=== PATIENT | female | born 1985 | race Hispanic/Latino ===

== ENCOUNTER 2022-07-30 08:57 | Emergency (ER) | payer BC ==
[2022-07-30] MEDS ORDERED: Ketorolac Tromethamine 30 MG/ML VIAL ONE (09:39)
[2022-07-30 09:51] LABS: #Basophils 0.1 10x3/uL (0.0-0.2); #Eosinphils 0.2 10x3/uL (0.0-0.5); #Monocytes 0.6 10x3/uL (0.0-1.1); #Neutrophils 5.2 10x3/uL (1.5-8.4); %Basophils 1.2 % (0.0-2.0); %Eosinophils 2.2 % (0.0-6.0); %Lymphocytes 27.3 % (18.0-47.0); %Monocytes 6.9 % (0.0-10.0); %Neutrophils 62.3 % (40.0-75.0); Bilirubin Neg (Negative); Blood, Urine 250 (Negative); Clarity Cloudy (Clear); Glucose, Urine (Dipstick) Normal (Negative); Hemoglobin 11.7 g/dL (12.0-15.5); Ketone, Urine Negative (Negative); Leukocyte 25 (Negative); Mean Corpuscular HGB CONC 31.4 g/dL (32.0-36.0); Mean Corpuscular Hemoglobin 23.5 pg (27.0-33.0); Mean Corpuscular Volume 74.9 fl (81.6-98.3); Mean Platelet Volume 9.6 fl (7.4-10.4); Nitrite Negative (Negative); Platelet Count 463 10x3/uL (150-450); Protein, Urine (Dipstick) 30 mg/dl (Neg-Trace); RBC Distribution Width 18.6 % (11.5-14.5); Red Blood Cell (RBC) Count 4.98 10x6/uL (3.90-5.03); Urobilinogen Normal mg/dL (Less than 2); White Blood Cell (WBC) Count 8.4 10x3/uL (3.5-10.5)
[2022-07-30 09:54] LABS: Pregnancy Test - Urine (BHCG) Negative (Negative); Pregu Control Background? CLEAR/WHITE (CLR/WHITE); Pregu Control Bar Appear? YES (CONTROL BAR)
[2022-07-30 10:01] LABS: RBC/HPF 21-50 HPF (0-3); WBC/HPF 0-3 HPF (0-3)
[2022-07-30 10:02] LABS: Bacteria/HPF 2+ HPF (None Seen)
[2022-07-30 10:03] LABS: Mucous/LPF 1+ LPF (<2+)
[2022-07-30] MEDS ORDERED: Morphine 4 MG/ML VIAL ONE (10:04)
[2022-07-30 10:08] LABS: ALT (SGPT) 14 U/L (8-55); AST (SGOT) 18 U/L (5-34); Albumin 4.3 g/dL (3.5-5.0); Alkaline Phosphatase 122 U/L (40-110); Anion Gap 12 mmol/L (10-20); BUN (Urea Nitrogen) 11 mg/dL (7.0-18.7); Bilirubin, Total 0.6 mg/dL (0.2-1.2); Calc. Creatinine Clearance 0 mL/min (70-130); Calcium 9.4 mg/dL (7.8-10.44); Carbon Dioxide 25 mmol/L (22-29); Chloride 106 mmol/L (98-107); Estimated GFR 102; Globulin 4.2 g/dL (2.4-3.5); Glucose 94 mg/dL (70-105); Potassium 4.1 mmol/L (3.5-5.1); Protein, Total 8.5 g/dL (6.0-8.3); Sodium 139 mmol/L (136-145)
[2022-07-30] MEDS ORDERED: cefTRIAXone\\ROCEPHIN 1 GM VIAL ONE (11:32)
[2022-07-30] MEDS ORDERED: Iopamidol 300 61% 100 ML VIAL FS ONE (13:23)
== END 2022-07-30 13:51 | disposition home or self-care (01) ==
LOC: CSHERS 08:57
DX: N30.01 Acute cystitis with hematuria (principal); N10 Acute pyelonephritis
CPT/HCPCS: 74177; 76705; 80053; 81003; 81015; 81025; 85025; 87086; 96361; 96374; 96375; J0696; J1885; J2270; Q9967

== ENCOUNTER 2022-08-27 23:32 | Emergency (ER) | payer BC ==
[2022-08-27] MEDS ORDERED: methylPREDNISolone Sod Succ/PF 125 MG/2 ML VIAL ONE (23:43)
[2022-08-27] MEDS ORDERED: EPINEPHrine 1 MG/ML AMP ONE (23:44)
[2022-08-27] MEDS ORDERED: Famotidine/PF 20 mg/2ml Vial ONE (23:44)
== END 2022-08-28 04:30 | disposition home or self-care (01) ==
LOC: CSHERS 23:32
DX: L29.9 Pruritus, unspecified (principal); T78.40XA Allergy, unspecified, initial encounter
CPT/HCPCS: 96372; 96374; 96375; J0171; J2930; S0028